=== PATIENT | female | born 1950 | race Asian ===

== ENCOUNTER 2020-03-16 19:27 | Emergency (ER) | payer MEDICARE, OTHER ==
[~2020-03-16] VITALS: Ht 154.9 cm; Wt 57.2 kg
--- NOTE | 2020-03-16 20:14 | NUR ---
DURING REPEAT VS. PT SAYS APROX 1 WEEK AGO WHILE GETTING OUT OF BED PT TRIPPED AND STRUCK LEFT SIDED TEMPORAL AREA, NO LOC.
--- NOTE | 2020-03-16 20:32 | NUR ---
[employer]: PT WALKED BACK FROM LOBBY TO ROOM AT THIS TIME.
--- NOTE | 2020-03-16 20:51 | NUR ---
Patient ambulatory upon arrival, [id number] states that her left sided neck pain began approximately 2-3 days previous that worsens with movement and eases with massage. Denies chest pain, SHOB, headache, dizziness, vision changes, numbness, tingling, weakness. Reported falling after rising from bed, striking left temporal area the previous week.
[2020-03-16] MEDS ORDERED: INSU100I17 SC (21:02)
[2020-03-16] MEDS ORDERED: INSU100I13 SC (21:02)
[2020-03-16] MEDS ORDERED: LOSA25TA25 PO (21:02)
--- NOTE | 2020-03-16 21:12 | NUR ---
ERP AT BEDSIDE FOR ASSESSMENT AND POC
[2020-03-16] MEDS ORDERED: IBUPROFEN 800 MG TABLET PO ONE (21:30)
[2020-03-16] MEDS ORDERED: PLEASE ENTER ALLERGIES MC SCH (21:30)
[2020-03-16] MEDS ORDERED: DIAZEPAM 5 MG TABLET PO ONE (21:30)
[2020-03-16 21:36] LABS: BASOPHILS % (AUTO) 0 % (0-1); EOSINOPHILS % (AUTO) 1 % (1-7); LYMPHOCYTES % (AUTO) 16 % (22-44); MEAN CORPUSCULAR HEMOGLOBIN 29.7 pg (27.0-34.8); MEAN CORPUSCULAR HGB CONC 33.4 g/dL (32.4-35.8); MEAN PLATELET VOLUME 8.6 fL (7.4-10.4); MONOCYTES % (AUTO) 8 % (2-9); NEUTROPHILS % (AUTO) 75 % (42-75); PLATELET COUNT 318 x10^3/uL (130-400); RED BLOOD COUNT 4.53 x10^6/uL (3.82-5.3); RED CELL DISTRIBUTION WIDTH 13.3 % (9.6-15.2)
[2020-03-16 21:37] LABS: ALBUMIN 3.4 g/dL (3.4-5.0); ANION GAP 5 mmol/L (5-15); CALCIUM 9.4 mg/dL (8.5-10.1); CHLORIDE 106 mmol/L (98-107); CREATININE 0.63 mg/dL (0.55-1.02)
[2020-03-16] MEDS ORDERED: DIAZEPAM 5 MG TABLET ONE (21:37)
[2020-03-16] MEDS ORDERED: IBUPROFEN 800 MG TABLET ONE (21:37)
[2020-03-16 21:40] LABS: MD NO; TROPONIN I < 0.015 ng/mL (0.000-0.045)
--- NOTE | 2020-03-16 22:15 | NUR ---
Patient reports increased comfort post medication.
[2020-03-16 22:44] VITALS: BP 148/74
== END 2020-03-16 22:47 | disposition home or self-care (01) ==
LOC: ED 22:22
DX: S16.1XXA Strain of muscle, fascia and tendon at neck level, initial encounter (principal); S29.012A Strain of muscle and tendon of back wall of thorax, initial encounter; R94.31 Abnormal electrocardiogram [ECG] [EKG]; R07.89 Other chest pain; E11.9 Type 2 diabetes mellitus without complications; I10 Essential (primary) hypertension; Z86.39 Personal history of other endocrine, nutritional and metabolic disease; X58.XXXA Exposure to other specified factors, initial encounter; Y93.89 Activity, other specified; Y92.89 Other specified places as the place of occurrence of the external cause; Y99.8 Other external cause status
CPT/HCPCS: 36415; 71046; 80048; 82040; 84484; 85025; 93005; 99285